=== PATIENT | male | born 1980 | race Two or more races ===

== ENCOUNTER 2017-03-06 19:48 | Emergency (ER) | payer OTHER ==
--- NOTE | ~2017-03-06 | CR58 ---
[facility] A Service of [facility] & [facility] RADIOLOGY TEXT RESULTS PATIENT: BORIS ESTRADA LOCATION: [facility] : 78 UNIT #: [id number] AGE: [address]: Zulema King SEX: M ORDER DR: [id number] [facility]. [place], [place] [address] [id number] E MR#: [id number] Acc #: [id number] NAME: BORIS ESTRADA : 1980 SEX: M STUDY DATE/TIME: 03/06/2017 19:56 UNIT: [facility] ROOM: STUDY DESCRIPTION: CR Cervical Spine 2 or 3 Views Attending Physician: Zulema King Pa-C Ordering Physician: Zulema King Pa-C Primary Care Physician: No Primary Care Physician MEDICAL IMAGING REPORT This report is preliminary unless electronic signature is present EXAM Cervical spine, 4 views COMPARISON None INDICATIONS 36-year-old male with neck pain since January 31, 2017, sometimes radiating to the left arm. FINDINGS Lateral view of the cervical spine is limited by motion. No significant degenerative changes of the cervical spine is seen. No evidence of acute fracture. Cervical spine is anatomically aligned. There is questionable Schmorl node formation at the inferior endplate of C2 and C3. IMPRESSION 1. No evidence of acute fracture or dislocation of the cervical spine. 2. Questionable mild Schmorl node formation at the inferior endplates of C2 and C3. Dictated by... Clinton Lemus M.D. THIS IS AN ELECTRONICALLY VERIFIED REPORT Clinton Lemus M.D. at 03/09/2017 3:13 PM JOE/lyla TD: 03/06/2017 23:19 JOB #: [id number] MEDICAL IMAGING REPORT Page 1 of 1 COPY
--- NOTE | ~2017-03-06 | CR229 ---
[facility] A Service [facility] RADIOLOGY TEXT RESULTS PATIENT: BORIS ESTRADA LOCATION: [facility] : 78 UNIT #: [id number] AGE: [address]: Zulema King SEX: M ORDER DR: [id number] [address] [address] [id number] E MR#: [id number] Acc #: [id number] NAME: BORIS ESTRADA : 1980 SEX: M STUDY DATE/TIME: 03/06/2017 20:08 UNIT: [facility]FT[facility] ROOM: STUDY DESCRIPTION: CR Shoulder Min 2 View Lt Attending Physician: Zulema King Pa-C Ordering Physician: Zulema King Pa-C Primary Care Physician: Hanane Primary Care Physician MEDICAL IMAGING REPORT This report is preliminary unless electronic signature is present EXAM Left shoulder, 3 views COMPARISON None INDICATIONS A 36-year-old male with left shoulder pain since January 31, 2017. FINDINGS The scapula is partly excluded from field of view inferiorly. The left shoulder is anatomically aligned. No evidence of acute fracture or degenerative change. IMPRESSION No evidence of acute fracture, dislocation or degenerative change of the left shoulder. Please note that the inferior tip of the scapula is excluded from field of view. Dictated by... Clinton Lemus M.D. THIS IS AN ELECTRONICALLY VERIFIED REPORT Clinton Lemus M.D. at 03/09/2017 3:04 PM JOE/randall TD: 03/06/2017 23:21 JOB #: [id number] MEDICAL IMAGING REPORT [facility] A Service [facility] RADIOLOGY TEXT RESULTS PATIENT: BORIS ESTRADA LOCATION: [facility] : 78 UNIT #: [id number] AGE: [address]: Zulema King SEX: M ORDER DR: Page 1 of 1 COPY
--- NOTE | ~2017-03-06 | CR63 ---
[facility] A Service of [facility] RADIOLOGY TEXT RESULTS PATIENT: BORIS ESTRADA LOCATION: [facility] : 78 UNIT #: [id number] AGE: [address]: Zulema King SEX: M ORDER DR: [id number] [facility]. [place], [place] [address] [id number] E MR#: [id number] Acc #: [id number] NAME: BORIS ESTRADA : 1980 SEX: M STUDY DATE/TIME: 03/06/2017 19:56 UNIT: [place] ROOM: STUDY DESCRIPTION: CR Chest 2 View Attending Physician: Zulema King Pa-C Ordering Physician: Zulema King Pa-C MEDICAL IMAGING REPORT This report is preliminary unless electronic signature is present EXAM 2 views of the chest COMPARISON Portable chest July 04, 2012. INDICATIONS 36-year-old male with chest pain down the left arm since January 31, 2017. Cough. FINDINGS Cardiomediastinal silhouette is within normal limits. No evidence of pneumothorax, pleural effusion or acute airspace disease. There is mild kyphosis of the thoracic spine and approximately 20% anterior height loss of a single thoracic vertebral body at the apex of the kyphosis. This is of uncertain acuity. No definite fracture line is seen. IMPRESSION 1. There is approximately 20% anterior height loss of a single thoracic vertebral body of uncertain acuity. This is at the apex of mild kyphosis of the thoracic spine. Correlation to exclude any signs of acute fracture is recommended. Given the history, this is thought unlikely but not entirely excluded. 2. Otherwise, normal chest radiograph. Dictated by... Clinton Lemus M.D. [facility] A Service of [facility] RADIOLOGY TEXT RESULTS PATIENT: BORIS ESTRADA LOCATION: [facility] : 78 UNIT #: [id number] AGE: [address]: Zulema King SEX: M ORDER DR: THIS IS AN ELECTRONICALLY VERIFIED REPORT Clinton Lemus M.D. at 03/09/2017 3:13 PM BLM/pcl TD: 03/06/2017 23:10 JOB #: [id number] MEDICAL IMAGING REPORT Page 1 of 1 COPY
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
== END 2017-03-06 21:23 | disposition home or self-care (01) ==
LOC: CFTX 19:48
DX: S16.1XXA Strain of muscle, fascia and tendon at neck level, initial encounter (principal); S00.93XA Contusion of unspecified part of head, initial encounter; R07.89 Other chest pain; M25.512 Pain in left shoulder; F17.210 Nicotine dependence, cigarettes, uncomplicated; V49.40XA Driver injured in collision with unspecified motor vehicles in traffic accident, initial encounter
CPT/HCPCS: 70450; 71020; 72040; 73030; 99284